=== PATIENT | female | born 2000 | race Caucasian/White ===

== ENCOUNTER 2018-06-29 13:02 | Inpatient (IN) | payer MEDICAID ==
[2018-06-29] MEDS ORDERED: MISOPROSTOL 200 MCG TAB PR (16:30)
[2018-06-29] MEDS ORDERED: OXYTOCIN 30 UNITS/LR 500 ML IV ×2 (16:30→21:43)
[2018-06-29] MEDS ORDERED: METHYLERGONOVINE 0.2 MG INJ IM (16:30)
[2018-06-29] MEDS ORDERED: CARBOPROST 250 MCG INJ IM (16:30)
[2018-06-29] MEDS: LACTATED RINGER'S 1,000 ML IV ×2 (17:36→20:51)
[2018-06-29 17:56] LABS: ADD MAN DIFF? NO
[2018-06-29 18:00] LABS: BASOPHILS % 0.3 % (0.0-2.0); EOSINOPHILS # 0.4 10^3/ul (0.0-0.5); EOSINOPHILS % 3.7 % (0.0-7.0); HEMATOCRIT 36.7 % (37.0-47.0); HEMOGLOBIN 12.3 g/dl (12.0-16.0); LYMPHOCYTES # 2.8 10^3/ul (0.8-2.9); LYMPHOCYTES % 27.2 % (18.0-55.0); MEAN CORPUSCULAR HEMOGLOBIN 30.5 pg (29.0-33.0); MEAN CORPUSCULAR HGB CONC 33.5 g/dl (32.0-37.0); MEAN CORPUSCULAR VOLUME 91.1 fl (72.0-104.0); MEAN PLATELET VOLUME 10.2 fl (7.4-10.4); MONOCYTE # 0.6 10^3/ul (0.3-0.9); NEUTROPHIL # 6.5 10^3/ul (1.6-7.5); NEUTROPHILS % 62.4 % (30.0-74.0); PLATELET COUNT 261 10^3/UL (140-415); RED BLOOD COUNT 4.03 10^6/ul (4.20-5.40)
[2018-06-29 18:00] LABS: WHITE BLOOD COUNT 10.4 10^3/ul (4.8-10.8)
[2018-06-29 18:21] LABS: INR 0.88; PARTIAL THROMBOPLASTIN TIME 26.9 Sec (25.0-35.0); PT RATIO 0.9
[2018-06-29 18:50] LABS: HEPATITIS B SURFACE ANTIGEN NEGATIVE (NEGATIVE)
[2018-06-29] MEDS: METOCLOPRAMIDE 10 MG INJ IV (20:47)
[2018-06-29] MEDS: FAMOTIDINE 20 MG INJ IV (20:48)
[2018-06-29] MEDS: CITRIC ACID/NA CITRATE 30 ML CUP PO (20:50)
[2018-06-29] MEDS ORDERED: BUPIVACAINE 0.75%/DEXT (SPINAL) 2 ML INJ (21:31)
[2018-06-29] MEDS ORDERED: morphine SULFATE/PF (10 MG/10 ML) INJ (21:31)
[2018-06-29 21:32] LABS: AMPHETAMINE/METHAMPHETAMINE Negative (NEGATIVE); BARBITURATES Negative (NEGATIVE); CANNABINOIDS Negative (NEGATIVE); COCAINE Negative (NEGATIVE); OPIATES Negative (NEGATIVE)
[2018-06-29] MEDS ORDERED: PHENYLephrine (100 MCG/ML) 5ML SYG (21:48)
[2018-06-29 21:55] LABS: BENZODIAZEPINES Negative (NEGATIVE)
[2018-06-29] MEDS ORDERED: ONDANSETRON 4 MG INJ (22:07)
[2018-06-29] MEDS ORDERED: MEPERIDINE 100 MG INJ (22:08)
[2018-06-29] MEDS: CEFAZOLIN 2 GM/50 ML (PMX) 50 ML IV (23:04)
[2018-06-29] MEDS: MEPERIDINE 25 MG INJ IV (23:13)
[2018-06-29] MEDS: OXYTOCIN 30 UNITS/LR 500 ML IV (23:19)
[2018-06-29] MEDS ORDERED: ONDANSETRON 4 MG INJ IV (23:30)
[2018-06-29] MEDS ORDERED: FENTAnyl 50 MCG/ML VIAL IV ×3 (23:30)
[2018-06-29] MEDS ORDERED: HYDROmorphONE 1 MG/5 ML IV SYRINGE IV ×3 (23:30)
[2018-06-29] MEDS ORDERED: PROCHLORPERAZINE 10 MG INJ IV (23:30)
[2018-06-29] MEDS ORDERED: DIPHENHYDRAMINE 50 MG INJ IV (23:30)
[2018-06-29] MEDS ORDERED: KETOROLAC 30 MG INJ IV (23:30)
[2018-06-30] MEDS ORDERED: OXYTOCIN 30 UNITS/LR 500 ML IV (01:00)
[2018-06-30] MEDS ORDERED: LANOLIN 7 GM TUBE TOP (01:00)
[2018-06-30] MEDS ORDERED: CARBOPROST 250 MCG INJ IM (01:00)
[2018-06-30] MEDS ORDERED: MISOPROSTOL 200 MCG TAB PR (01:00)
[2018-06-30] MEDS ORDERED: METHYLERGONOVINE 0.2 MG TAB PO (01:00)
[2018-06-30] MEDS ORDERED: MAGNESIUM HYDROXIDE 30ML CUP PO (01:00)
[2018-06-30] MEDS: DEXTROSE 5%-LR 1,000 ML IV ×3 (01:00→14:44)
[2018-06-30] MEDS ORDERED: METHYLERGONOVINE 0.2 MG INJ IM (01:00)
[2018-06-30] MEDS ORDERED: NALOXONE (0.4 MG/ML) INJ IV (01:30)
[2018-06-30] MEDS ORDERED: HYDROmorphONE 0.5 MG/0.5 ML SYG IV ×2 (01:30)
[2018-06-30] MEDS ORDERED: ZOLPIDEM 5 MG TAB PO (01:30)
[2018-06-30] MEDS ORDERED: DIPHENHYDRAMINE 50 MG INJ IV (01:30)
[2018-06-30] MEDS ORDERED: ONDANSETRON 4 MG INJ IV (01:30)
[2018-06-30] MEDS: OXYTOCIN 30 UNITS/LR 500 ML IV (01:35)
[2018-06-30] MEDS: SENNA/DOCUSATE NA (8.6MG/50MG) TAB PO ×2 (08:58→22:09)
[2018-06-30 15:30] LABS: RAPID PLASMA REAGIN NONREACTIVE (NR)
[2018-06-30] MEDS: KETOROLAC 30 MG INJ IV (18:36)
[2018-06-30] MEDS ORDERED: OXYCODONE/ACETAMINOPHEN (5/325) TAB PO (21:39)
[2018-06-30] MEDS: OXYCODONE/ACETAMINOPHEN (5/325) TAB PO (22:08)
[2018-06-30] MEDS: IBUPROFEN 800 MG TAB PO (23:38)
[2018-07-01] MEDS: OXYCODONE/ACETAMINOPHEN (5/325) TAB PO ×3 (05:39→21:39)
[2018-07-01 07:10] LABS: ADD MAN DIFF? NO
[2018-07-01 07:12] LABS: WHITE BLOOD COUNT 10.8 10^3/ul (4.8-10.8)
[2018-07-01 07:12] LABS: BASOPHILS % 0.3 % (0.0-2.0); EOSINOPHILS # 0.5 10^3/ul (0.0-0.5); EOSINOPHILS % 4.2 % (0.0-7.0); HEMATOCRIT 35.3 % (37.0-47.0); HEMOGLOBIN 11.7 g/dl (12.0-16.0); LYMPHOCYTES # 2.5 10^3/ul (0.8-2.9); LYMPHOCYTES % 22.8 % (18.0-55.0); MEAN CORPUSCULAR HEMOGLOBIN 30.7 pg (29.0-33.0); MEAN CORPUSCULAR HGB CONC 33.1 g/dl (32.0-37.0); MEAN CORPUSCULAR VOLUME 92.7 fl (72.0-104.0); MEAN PLATELET VOLUME 10.2 fl (7.4-10.4); MONOCYTE # 0.7 10^3/ul (0.3-0.9); MONOCYTES % 6.8 % (0.0-13.0); NEUTROPHIL # 7.1 10^3/ul (1.6-7.5); NEUTROPHILS % 65.3 % (30.0-74.0); PLATELET COUNT 251 10^3/UL (140-415); RED BLOOD COUNT 3.81 10^6/ul (4.20-5.40); RED CELL DISTRIBUTION WIDTH 12.1 % (11.5-14.5)
[2018-07-01] MEDS: IBUPROFEN 800 MG TAB PO ×3 (07:32→22:11)
[2018-07-01] MEDS: SENNA/DOCUSATE NA (8.6MG/50MG) TAB PO ×2 (09:00→20:51)
[2018-07-02] MEDS: OXYCODONE/ACETAMINOPHEN (5/325) TAB PO (05:39)
[2018-07-02] MEDS: IBUPROFEN 800 MG TAB PO (05:45)
[2018-07-02] MEDS: SENNA/DOCUSATE NA (8.6MG/50MG) TAB PO (09:00)
[2018-07-03] MEDS ORDERED: MEASLES,MUMPS,RUBELLA VACCINE INJ SC* (09:00)
[2018-07-03] MEDS ORDERED: DIPHTH/TET/ACEL PERTUSS (ADULT) 0.5 ML VIAL IM* (09:00)
== END 2018-07-02 17:07 | disposition home or self-care (01) | DRG 765 ==
LOC: OBT 13:02 → PP1 06-30 01:41 → L-D 13:03 → OBT 16:30 → L-D 16:30
PROVIDERS: Obstetrics & Gynecology
PROC: 10D00Z1 Extraction of Products of Conception, Low, Open Approach (ICD-10-PCS; principal; 2018-06-30)
DX: O36.22X0 Maternal care for hydrops fetalis, second trimester, not applicable or unspecified (principal); O36.4XX0 Maternal care for intrauterine death, not applicable or unspecified; O32.1XX0 Maternal care for breech presentation, not applicable or unspecified; O13.4 Gestational [pregnancy-induced] hypertension without significant proteinuria, complicating childbirth; Z3A.26 26 weeks gestation of pregnancy; Z37.1 Single stillbirth
CPT/HCPCS: 76818; 80307; 85025; 85610; 85730; 86592; 86850; 86900; 86901; 87340; 88307